=== PATIENT | male | born 1965 | race American Indian/Alaskan Native ===

== ENCOUNTER 2021-06-29 09:46 | Inpatient (IN) | payer MEDICAID ==
--- NOTE | 2021-06-29 10:52 | Emergency Department Report ---
HPI - General Chief Complaint: Syncope Time Seen by Provider: 06/29/21 10:31 - [facility] HPI: Room 20 The patient is a 55-year-old male present with chief complaint of syncope. The patient states he awakened this morning feeling great except for a mild headache at the calvarium. Patient states he stopped at a store to buy some Advil and abdelrahman nirmal. Patient states he then drove to work and after parking his car and walking towards his job he says he began to sweat and feel short of breath before losing consciousness. Patient states his next memory is awakening on the ground with his coworker over him. Patient denied ever having chest pain or palpitations. Patient denies history of cough. Patient denies any previous episodes of the same. Patient states he has not received a Covid vaccination. When asked how he is feeling currently the patient replies he feels good. ED Past Medical Hx - Past Medical History Previous Medical History?: No - Surgical History Past Surgical History?: No - Family History Family history: no significant - Social History Smoking Status: Never Smoker Substance Use Type: None (Denies illicit drug use) ED Review of Systems ROS: Stated complaint: SYNCOPAL EPISODE Other details as noted in HPI Constitutional: denies: fever Eyes: denies: eye pain ENT: denies: throat pain Respiratory: shortness of breath. denies: cough Cardiovascular: denies: chest pain, palpitations Endocrine: no symptoms reported Gastrointestinal: nausea Genitourinary: denies: dysuria Musculoskeletal: denies: back pain Neurological: headache Physical Exam - Physical Exam Vital Signs: Vital Signs 06/29/21 06/29/21 06/29/21 10:24 10:26 10:36 Temperature Pulse Rate 64 Respiratory 14 Rate Blood Pressure 105/57 O2 Sat by Pulse 98 97 99 Oximetry 06/29/21 10:43 Temperature 97.4 F L Pulse Rate Respiratory Rate Blood Pressure O2 Sat by Pulse Oximetry Physical Exam: GENERAL: The patient is well-developed well-nourished male lying on stretcher not appearing to be in acute distress. [] HEENT: Normocephalic. Atraumatic. Extraocular motions are intact. Patient has moist mucous membranes. NECK: Supple. No meningitic signs are noted. There is no adenopathy noted. CHEST/LUNGS: Clear to auscultation. There is no respiratory distress noted. HEART/CARDIOVASCULAR: Regular. There is no tachycardia. There is no gallop rub or murmur. ABDOMEN: Abdomen is soft, nontender. Patient has normal bowel sounds. There is no abdominal distention. SKIN: There is no rash. There is no edema. There is no diaphoresis. NEURO: The patient is awake, alert, and oriented. The patient is cooperative. The patient has no focal neurologic deficits. The patient has normal speech. Cranial nerves II through XII grossly intact. GCS 15 MUSCULOSKELETAL:There is no evidence of acute injury. RECTAL: Guaiac positive maroon-colored stool ED Course Vital Signs 06/29/21 06/29/21 06/29/21 10:24 10:26 10:36 Temperature Pulse Rate 64 Respiratory 14 Rate Blood Pressure 105/57 O2 Sat by Pulse 98 97 99 Oximetry 06/29/21 10:43 Temperature 97.4 F L Pulse Rate Respiratory Rate Blood Pressure O2 Sat by Pulse Oximetry ED Medical Decision Making - Lab Data Result diagrams: 06/29/21 11:53 06/29/21 11:53 Laboratory Tests 06/29/21 06/29/21 06/29/21 11:53 11:53 11:53 WBC 10.5 RBC 3.89 Hgb 11.5 L Hct 34.5 L MCV 89 MCH 30 MCHC 33 RDW 13.5 Plt Count 173 Lymph % (Auto) 8.7 L Cabell % (Auto) 5.1 Eos % (Auto) 0.8 Baso % (Auto) 0.3 Lymph # (Auto) 0.9 L Cabell # (Auto) 0.5 Eos # (Auto) 0.1 Baso # (Auto) 0.0 Seg Neutrophils % 85.1 H Seg Neutrophils # 9.0 H PT 16.1 H INR 1.24 H APTT 23.8 L D-Dimer 790.90 H Sodium 141 Potassium 4.2 Chloride 107.4 H Carbon Dioxide 27 Anion Gap 11 BUN 33 H Creatinine 0.9 Estimated GFR > 60 BUN/Creatinine Ratio 37 Glucose 82 Calcium 8.3 L Magnesium 1.90 Total Bilirubin 0.30 AST 14 ALT 12 Alkaline Phosphatase 71 Total Creatine Kinase 176 H CK-MB (CK-2) 5.0 H CK-MB (CK-2) Rel Index 2.8 Troponin T < 0.010 Total Protein 5.9 L Albumin 3.4 L Albumin/Globulin Ratio 1.4 TSH Free T4 Urine Color Urine Turbidity Urine pH Ur Specific Liberty Urine Protein Urine Glucose (UA) Urine Ketones Urine Blood Urine Nitrite Urine Bilirubin Urine Urobilinogen Ur Leukocyte Esterase Urine WBC (Auto) Urine RBC (Auto) Urine Mucus Urine Opiates Screen Urine Methadone Screen Ur Barbiturates Screen Ur Phencyclidine Scrn Ur Amphetamines Screen U Benzodiazepines Scrn Urine Cocaine Screen U Marijuana (THC) Screen Drugs of Abuse Note Plasma/Serum Alcohol Blood Type Antibody Screen 06/29/21 06/29/21 06/29/21 11:53 11:53 11:53 WBC RBC Hgb Hct MCV MCH MCHC RDW Plt Count Lymph % (Auto) Cabell % (Auto) Eos % (Auto) Baso % (Auto) Lymph # (Auto) Cabell # (Auto) Eos # (Auto) Baso # (Auto) Seg Neutrophils % Seg Neutrophils # PT INR APTT D-Dimer Sodium Potassium Chloride Carbon Dioxide Anion Gap BUN Creatinine Estimated GFR BUN/Creatinine Ratio Glucose Calcium Magnesium Total Bilirubin AST ALT Alkaline Phosphatase Total Creatine Kinase CK-MB (CK-2) CK-MB (CK-2) Rel Index Troponin T Total Protein Albumin Albumin/Globulin Ratio TSH 1.400 Free T4 0.77 Urine Color Urine Turbidity Urine pH Ur Specific Liberty Urine Protein Urine Glucose (UA) Urine Ketones Urine Blood Urine Nitrite Urine Bilirubin Urine Urobilinogen Ur Leukocyte Esterase Urine WBC (Auto) Urine RBC (Auto) Urine Mucus Urine Opiates Screen Urine Methadone Screen Ur Barbiturates Screen Ur Phencyclidine Scrn Ur Amphetamines Screen U Benzodiazepines Scrn Urine Cocaine Screen U Marijuana (THC) Screen Drugs of Abuse Note Plasma/Serum Alcohol < 0.01 Blood Type B POSITIVE Antibody Screen Negative 06/29/21 06/29/21 12:03 12:03 WBC RBC Hgb Hct MCV MCH MCHC RDW Plt Count Lymph % (Auto) Cabell % (Auto) Eos % (Auto) Baso % (Auto) Lymph # (Auto) Cabell # (Auto) Eos # (Auto) Baso # (Auto) Seg Neutrophils % Seg Neutrophils # PT INR APTT D-Dimer Sodium Potassium Chloride Carbon Dioxide Anion Gap BUN Creatinine Estimated GFR BUN/Creatinine Ratio Glucose Calcium Magnesium Total Bilirubin AST ALT Alkaline Phosphatase Total Creatine Kinase CK-MB (CK-2) CK-MB (CK-2) Rel Index Troponin T Total Protein Albumin Albumin/Globulin Ratio TSH Free T4 Urine Color Yellow Urine Turbidity Clear Urine pH 5.0 Ur Specific Liberty 1.018 Urine Protein <15 mg/dl Urine Glucose (UA) 50 Urine Ketones Neg Urine Blood Neg Urine Nitrite Neg Urine Bilirubin Neg Urine Urobilinogen < 2.0 Ur Leukocyte Esterase Neg Urine WBC (Auto) 1.0 Urine RBC (Auto) < 1.0 Urine Mucus Few Urine Opiates Screen Negative Urine Methadone Screen Negative Ur Barbiturates Screen Negative Ur Phencyclidine Scrn Negative Ur Amphetamines Screen Negative U Benzodiazepines Scrn Negative Urine Cocaine Screen Negative U Marijuana (THC) Screen Negative Drugs of Abuse Note Disclamer Plasma/Serum Alcohol Blood Type Antibody Screen - EKG Data -: EKG Interpreted by Me EKG shows normal: sinus rhythm Rate: normal - EKG Data When compared to previous EKG there are: previous EKG unavailable Interpretation: other (No ischemic changes seen) - Radiology Data Radiology results: report reviewed (CT angio abdomen pelvis), image reviewed (CT angio abdomen pelvis) interpreted by me: Chest x-ray-no definite focal infiltrates, no pneumothorax. Left humerus x-ray-no acute fracture, no dislocation [facility] [address] [place] [address] Cat Scan Report Signed Patient: MARK ISSA MR#: [id number] 3 : 1965 Acct:[id number] Age/Sex: 55 / M ADM Date: 06/29/21 Loc: ED Attending Dr: Ordering Physician: CHANG RUDD MD Date of Service: 06/29/21 Procedure(s): CT angio abdomen pelvis Accession Number(s): [id number] cc: CHANG RUDD MD CT abdo men/pelvis with contrast INDICATION / CLINICAL INFORMATION: Syncope, COMPLAINT OF CHEST PAIN AND DIZZINES omni 350 100 ML. TECHNIQUE: Axial CT imaging of abdomen and pelvis was obtained with IV contrast. Coronal and sagittal reformatted imaging obtained and reviewed. All CT scans at this location are performed using CT dose reduction for ALARA by means of automated exposure control. Please note this exam is listed as a CT angiogram abdomen and pelvis, but exam was performed as CT abdomen/pelvis with contrast. CTA abdomen was not performed COMPARISON: None available. FINDINGS: CT abdomen with contrast demonstrates normal appearance of the liver, spleen, pancreas, kidneys, and adrenal glands. Gallbladder is present and without obvious abnormality. No biliary dilatation noted. The abdominal aorta is unremarkable. No evidence of aortic dissection or aneurysm. No significant plaque is identified in the major arteries of the abdomen. CT pelvis with contrast does not demonstrate any mass, free fluid, or focal inflammatory change. The appendix is visualized in the right lower quadrant and appears unremarkable. Prostate gland is mildly enlarged. GI tract is grossly unremarkable. Visualized osseous structures demonstrate mild degenerative disc disease at L4-L5 with mild anterolisthesis at this same level. IMPRESSION: 1. No acute finding within the abdomen or pelvis. Signer Name: Shauna Vanegas MD Signed: 06/29/2021 2:20 PM Workstation Name: [id number] Transcribed By: JR Dictated By: Shauna Vanegas MD Electronically Authenticated By: Shauna Vanegas MD Signed Date/Time: 142 DD/ 15 TD/TT: Print Cancel [facility] [address] [place] [address] Cat Scan Report Signed Patient: MARK ISSA MR#: [id number] 3 : 1965 Acct:[id number] Age/Sex: 55 / M ADM Date: 06/29/21 Loc: ED Attending Dr: Ordering Physician: CHANG RUDD MD Date of Service: 06/29/21 Procedure(s): CT angio chest Accession Number(s): [id number] cc: CHANG RUDD MD CTA CHEST WITH IV CONTRAST INDICATION / CLINICAL INFORMATION: Syncope Omni 300 100 ml. TECHNIQUE: Axial CT images were obtained through the chest after injection of 100 cc IV contrast. 3 plane MIP and/or 3D reconstructions were produced. All CT scans at this location are performed using CT dose reduction for ALARA by means of automated exposure control. COMPARISON: 06/29/2021 FINDINGS: PULMONARY ARTERIES: No pulmonary emboli. THORACIC AORTA: There is an apparent right subclavian artery, arising from the aortic arch and extending posterior to the esophagus and trachea. This is an incidental finding. The thoracic aorta is otherwise unre markable. No evidence of dissection or aneurysm. HEART: No significant abnormality. CORONARY ARTERIES: Coronary artery calcification is present in the LAD. PLEURA: No pleural effusion. No pneumothorax. LYMPH NODES: No significant adenopathy. LUNGS: There are diffuse groundglass opacities throughout the right lower lobe and right middle lobe. The left lung is clear. The right upper lobe is spared. ADDITIONAL FINDINGS: None. UPPER ABDOMEN: No acute findings. SKELETAL STRUCTURES: No significant osseous abnormality. IMPRESSION: 1. No CT evidence for pulmonary embolism. 2. Groundglass opacities are present within the right middle lobe and right lower lobe. The appearance is most suggestive of pne umonia. It is unclear if this is bacterial or viral in etiology and clinical correlation is recommended. 3. Aberrant right subclavian artery, as described above. This is an incidental finding. Signer Name: Shauna Vanegas MD Signed: 06/29/2021 2:44 PM Workstation Name: [id number] Transcribed By: Dictated By: Shauna Vanegas MD Electronically Authenticated By: Shauna Vanegas MD Signed Date/Time: 06/29/21 1444 DD/ 1439 TD/TT: Print Cancel [address] [address] XRay Report Signed Patient: MARK ISSA MR#: [id number] 3 : 1965 Acct:[id number] Age/Sex: 55 / M ADM Date: 06/29/21 Loc: ED Attending Dr: Ordering Physician: CHANG RUDD MD Date of Service: 06/29/21 Procedure(s): XR chest 1V ap Accession Number(s): [id number] cc: CHANG RUDD MD Fluoro Time In Minutes: CHEST 1 VIEW INDICATION / CLINICAL INFORMATION: Shortness of breath preceding syncope. COMPARISON: None available. FINDINGS: SUPPORT DEVICES: None. HEART / MEDIASTINUM: No significant abnormality. LUNGS / PLEURA: No significant pulmonary or pleural abnormality. No pneumothorax. ADDITIONAL FINDINGS: No signi ficant additional findings. IMPRESSION: 1. No acute findings. Signer Name: Shauna Vanegas MD Signed: 06/29/2021 11:33 AM Workstation Name: [id number] Transcribed By: Dictated By: Shauna Vanegas MD Electronically Authenticated By: Shauna Vanegas MD Signed Date/Time: 06/29/21 1133 DD/ 1132 TD/TT: Print Cancel [address] [place] [address] XRay Report Signed Patient: MARK ISSA MR#: [id number] 3 : 1965 Acct:[id number] Age/Sex: 55 / M ADM Date: 06/29/21 Loc: ED Attending Dr: Piero [place] Physician: CHANG RUDD MD Date of Service: 06/29/21 Procedure(s): XR humerus 2+V LT Accession Number(s): [id number] cc: CHANG RUDD MD Fluoro Time In Minutes: LEFT HUMERUS, 4 VIEWS INDICATION / CLINICAL INFORMATION: Pain after fall. COMPARISON: None available. FINDINGS: The left humerus is intact. No fracture or malalignment noted. No appreciable soft tissue abnormality. IMPRESSION: No fracture noted. Signer Name: Shauna Vanegas MD Signed: 06/29/2021 11:34 AM Workstation Name: [id number] Transcribed By: JR Dictated By: Shauna Vanegas MD Electronically Authenticated By: Shauna Vanegas MD Signed Date/Time: 06/29/21 1134 DD/ 1133 TD/TT: - Differential Diagnosis Dysrhythmia, PE, ACS, symptomatic anemia, dehydration Critical care attestation.: If time is entered above; I have spent that time in minutes in the direct care of this critically ill patient, excluding procedure time. ED Disposition Clinical Impression: Syncope, Pneumonia, GI bleed Disposition: OP ADMIT IP TO THIS HOSP Is pt being admited?: Yes Does the pt Need Aspirin: No Condition: Fair Instructions: Syncope (ED), Bacterial Pneumonia (ED) Time of Disposition: 14:57 (Hospitalist paged (Dr. Enriquez))
[2021-06-29] MEDS ORDERED: SODIUM CHLORIDE 0.9% 1000 ML 1,000 ML IV ONE ×2 (11:00→12:00)
--- NOTE | 2021-06-29 11:37 | XRay Report ---
CHEST 1 VIEW INDICATION / CLINICAL INFORMATION: Shortness of breath preceding syncope. COMPARISON: None available. FINDINGS: SUPPORT DEVICES: None. HEART / MEDIASTINUM: No significant abnormality. LUNGS / PLEURA: No significant pulmonary or pleural abnormality. No pneumothorax. ADDITIONAL FINDINGS: No significant additional findings. IMPRESSION: 1. No acute findings. Signer Name: Shauna Vanegas MD Signed: 06/29/2021 11:33 AM Workstation Name: [id number]
--- NOTE | 2021-06-29 11:38 | XRay Report ---
LEFT HUMERUS, 4 VIEWS INDICATION / CLINICAL INFORMATION: Pain after fall. COMPARISON: None available. FINDINGS: The left humerus is intact. No fracture or malalignment noted. No appreciable soft tissue abnormality . IMPRESSION: No fracture noted. Signer Name: Shauna Vanegas MD Signed: 06/29/2021 11:34 AM Workstation Name: [id number]
--- NOTE | 2021-06-29 11:43 | Cat Scan Report ---
CT HEAD WITHOUT CONTRAST INDICATION / CLINICAL INFORMATION: Syncope. TECHNIQUE: All CT scans at this location are performed using CT dose reduction for ALARA by means of automated e xposure control. COMPARISON: None available. FINDINGS: HEMORRHAGE: No evidence of intracranial hemorrhage or extra-axial fluid collection. EXTRA-AXIAL SPACES: Cortical sulci, sylvian fissures and basilar cisterns have an unremarkable appear ance. VENTRICULAR SYSTEM: The third and lateral ventricles are of normal size and configuration. CEREBRAL PARENCHYMA: Moderate periventricular white matter lucency is observed posterior hemispheres. This may reflect presence of advanced microvascular ischemic change, greater than expected for patie nt's age of 55 years. Are there risk factors such as attention, diabetes, renal failure or cigarettes smoking No additional areas of abnormal brain parenchymal attenuation are MIDLINE SHIFT OR HERNIATION: There is no mass effect. CEREBELLUM / BRAINSTEM: Brainstem and cerebellum have an unremarkable appearance. MIDLINE STRUCTURES:No abnormalities of the pituitary gland or pineal region are identified. INTRACRANIAL VESSELS:Calcified atherosclerotic plaque is seen along the course of the cavernous segme nts of both internal carotid arteries. Similar findings are seen at the distal vertebral arteries. Th is reflects a degree of intercranial atherosclerosis which is greater than expected for age 55 years. ORBITS: visualized portions of the orbits have an unremarkable appearance. SOFT TISSUES of HEAD: No significant abnormality. CALVARIUM: Evaluation of bone windows reveals no abnormalities. PARANASAL SINUSES / MASTOID AIR CELLS: Visualized portions of the paranasal sinuses are free from inf lammatory mucosal disease. Mastoid air cells are normally pneumatized. IMPRESSION: 1. Moderate microvascular ischemic change in intercranial atherosclerotic calcified plaque in excess of those findings expected for the patient's age of 55 years. 2. No acute intracranial abnormalities are identified. Signer Name: Serafin Izquierdo MD Signed: 06/29/2021 11:39 AM Workstation Name: [id number]
[2021-06-29] MEDS ORDERED: PANTOPRAZOLE 40 MG INJ IV ONE (12:03)
[2021-06-29 12:12] LABS: Basophils % (Auto) 0.3 % (0.0-1.8); Eosinophils # (Auto) 0.1 K/mm3 (0.0-0.4); Eosinophils % (Auto) 0.8 % (0.0-4.3); Hematocrit 34.5 % (35.5-45.6); Hemoglobin 11.5 gm/dl (11.8-15.2); Lymphocytes # (Auto) 0.9 K/mm3 (1.2-5.4); Lymphocytes % (Auto) 8.7 % (13.4-35.0); Mean Corpuscular HGB Conc 33 % (32-34); Mean Corpuscular Volume 89 fl (84-94); Monocytes # (Auto) 0.5 K/mm3 (0.0-0.8); Monocytes % (Auto) 5.1 % (0.0-7.3); Platelet Count 173 K/mm3 (140-440); Red Blood Count 3.89 M/mm3 (3.65-5.03); Red Cell Distribution Width 13.5 % (13.2-15.2)
[2021-06-29 12:20] LABS: INR 1.24 (0.87-1.13)
[2021-06-29 12:21] LABS: Partial Thromboplastin Time 23.8 Sec. (24.2-36.6)
[2021-06-29 12:21] LABS: Bilirubin,Urine NEG (Negative); Blood,Urine NEG (Negative); Color,Urine Yellow (Yellow); Mucus,Urine FEW /HPF; Protein,Urine <15 mg/dL mg/dL (Negative); RBC,Urine < 1.0 /HPF (0.0-6.0); Urobilinogen,Urine < 2.0 mg/dL (<2.0)
[2021-06-29 12:26] LABS: Amphetamine Screen,Urine Negative; Benzodiazepines Screen,Urine Negative; Cannabinoid Screen,Urine Negative; Cocaine Screen,Urine Negative; Methadone Screen,Urine Negative; Opiate Screen,Urine Negative
[2021-06-29 12:36] LABS: Alanine Aminotransferase 12 units/L (7-56); Albumin 3.4 g/dL (3.9-5); BUN/Creatinine Ratio 37; Blood Urea Nitrogen 33 mg/dL (9-20); Calcium 8.3 mg/dL (8.4-10.2); Hemolysis Index 7
[2021-06-29 12:46] LABS: Free T4 (Free Thyroxine) 0.77 ng/dL (0.76-1.46)
--- NOTE | 2021-06-29 14:24 | Cat Scan Report ---
CT abdomen/pelvis with contrast INDICATION / CLINICAL INFORMATION: Syncope, COMPLAINT OF CHEST PAIN AND DIZZINES omni 350 100 ML. TECHNIQUE: Axial CT imaging of abdomen and pelvis was obtained with IV contrast. Coronal and sagittal reformatte d imaging obtained and reviewed. All CT scans at this location are performed using CT dose reduction for ALARA by means of automated exposure control. Please note this exam is listed as a CT angiogram abdomen and pelvis, but exam was performed as CT ab domen/pelvis with contrast. CTA abdomen was not performed COMPARISON: None available. FINDINGS: CT abdomen with contrast demonstrates normal appearance of the liver, spleen, pancreas, kidneys, and adrenal glands. Gallbladder is present and without obvious abnormality. No biliary dilatation noted. The abdominal aorta is unremarkable. No evidence of aortic dissection or aneurysm. No significant francesca que is identified in the major arteries of the abdomen. CT pelvis with contrast does not demonstrate any mass, free fluid, or focal inflammatory change. The appendix is visualized in the right lower quadrant and appears unremarkable. Prostate gland is mildly enlarged. GI tract is grossly unremarkable. Visualized osseous structures demonstrate mild degenerative disc disease at L4-L5 with mild anterolis thesis at this same level. IMPRESSION: 1. No acute finding within the abdomen or pelvis. Signer Name: Shauna Vanegas MD Signed: 06/29/2021 2:20 PM Workstation Name: [email or web address]
--- NOTE | 2021-06-29 14:49 | Cat Scan Report ---
CTA CHEST WITH IV CONTRAST INDICATION / CLINICAL INFORMATION: Syncope Omni 300 100 ml. TECHNIQUE: Axial CT images were obtained through the chest after injection of 100 cc IV contrast. 3 plane MIP an d/or 3D reconstructions were produced. All CT scans at this location are performed using CT dose redu ction for [facility] by means of automated exposure control. COMPARISON: 06/29/2021 FINDINGS: PULMONARY ARTERIES: No pulmonary emboli. THORACIC AORTA: There is an apparent right subclavian artery, arising from the aortic arch and extend ing posterior to the esophagus and trachea. This is an incidental finding. The thoracic aorta is othe rwise unremarkable. No evidence of dissection or aneurysm. HEART: No significant abnormality. CORONARY ARTERIES: Coronary artery calcification is present in the LAD. PLEURA: No pleural effusion. No pneumothorax. LYMPH NODES: No significant adenopathy. LUNGS: There are diffuse groundglass opacities throughout the right lower lobe and right middle lobe. The left lung is clear. The right upper lobe is spared. ADDITIONAL FINDINGS: None. UPPER ABDOMEN: No acute findings. SKELETAL STRUCTURES: No significant osseous abnormality. IMPRESSION: 1. No CT evidence for pulmonary embolism. 2. Groundglass opacities are present within the right middle lobe and right lower lobe. The appearanc e is most suggestive of pneumonia. It is unclear if this is bacterial or viral in etiology and clinic al correlation is recommended. 3. Aberrant right subclavian artery, as described above. This is an incidental finding. Signer Name: Shauna Vanegas MD Signed: 06/29/2021 2:44 PM Workstation Name: [id number]
[2021-06-29] MEDS ORDERED: AZITHROMYCIN/NS 500 MG/250 ML 500 MG/250 ML BAG IV ONE (14:54)
[2021-06-29] MEDS ORDERED: cefTRIAXone/NS 1 GM/50 ML 1 GM/50 ML BAG IV ONE (14:54)
[2021-06-29] MEDS ORDERED: MORPHINE 2 MG/1 ML INJ IV PRN (22:37)
[2021-06-29] MEDS ORDERED: HYDROmorphone 1 MG/1 ML INJ IV PRN (22:37)
[2021-06-29] MEDS ORDERED: ACETAMINOPHEN 325 MG TAB PO PRN (22:37)
[2021-06-29] MEDS ORDERED: ONDANSETRON 4 MG/2 ML INJ IV PRN (22:37)
--- NOTE | 2021-06-29 22:37 | History and Physical Report ---
History of Present Illness Date of examination: 06/29/21 Date of admission: 06/29/21 21:33 Chief complaint: Passed out this morning History of present illness: 55-year-old male with no significant past medical history apparently began with sweat and felt short of breath and passed out. Patient states that he was on the ground and his coworker woke him up. Patient was exposed to some heat. Because of mild headache prior to the syncopal episode patient brought to [facility] and go to work. In the emergency room patient feels better and normal. Vital signs are stable. Patient is not vaccinated against Covid. No fever or chills. First episode of passing out while going to work. No chest pain or shortness of breath or altered sensorium. Patient also complained of dark stools for last 24 hours. - Past Medical History Previous Medical History?: No - Surgical History Past Surgical History?: No - Family History Family history: no significant - Social History Smoking Status: Never Smoker Substance Use Type: None (Denies illicit drug use) Review of Systems ROS: GI dark stools for 24 hours [employer] syncope Constitutional no weight loss or weight gain no fever or chills HEENT no sore throat no post nasal drip no diplopia Neck no neck stiffness no lymph gland enlargement Chest and lungs no shortness of breath cough or wheezing CVS no chest pain no diaphoresis no palpitations Genitourinary system no dysuria no flank pain Musculoskeletal system no muscle pains no joint pains Skin no rash no itching Psychiatric no depression no homicidal or suicidal tendencies Hematologic no lymphedema or bruising Endocrine no polydipsia no polyuria no cold intolerance no heat intolerance Medications and Allergies Allergies Allergy/AdvReac Type Severity Reaction Status Date / Time No Known Allergies Allergy Unverified 06/29/21 11:06 Exam - Constitutional Vitals: Temp Pulse Resp BP Pulse Ox 97.4 F L 82 14 115/70 96 06/29/21 10:43 06/29/21 21:30 06/29/21 21:30 06/29/21 21:30 06/29/21 21:30 General appearance: Present: no acute distress, well-nourished - EENT Eyes: Present: PERRL ENT: hearing intact, clear oral mucosa - Neck Neck: Present: supple, normal ROM - Respiratory Respiratory effort: normal Respiratory: bilateral: CTA - Cardiovascular Heart Sounds: Present: S1 & S2. Absent: rub, click - Extremities Extremities: pulses symmetrical, No edema Peripheral Pulses: within normal limits - Abdominal General gastrointestinal: Present: soft, non-tender, non-distended, normal bowel sounds Male genitourinary: Present: normal - Integumentary Integumentary: Present: clear, warm, dry - Musculoskeletal Musculoskeletal: gait normal, strength equal bilaterally - Psychiatric Psychiatric: appropriate mood/affect, intact judgment & insight - Neurologic Neurologic: CNII-XII intact, moves all extremities - Allied Health Allied health notes reviewed: nursing, case management HEART Score - HEART Score History: Slightly suspicious EKG: Normal Age: 45-65 Risk factors: No known risk factors Troponin: Troponin T < 0.010 ng/mL (0.00-0.029) 06/29/21 11:53 Troponin: < normal limit HEART Score: 1 - Critical Actions Critical Actions: 0-3 pts:0.9-1.7%risk of adverse cardiac event.Candidate for discharge Results - Labs CBC & Chem 7: 06/29/21 23:58 06/29/21 23:58 Labs: Laboratory Last Values WBC 10.5 K/mm3 (4.5-11.0) 06/29/21 11:53 RBC 3.89 M/mm3 (3.65-5.03) 06/29/21 11:53 Hgb 11.5 gm/dl (11.8-15.2) L 06/29/21 11:53 Hct 34.5 % (35.5-45.6) L 06/29/21 11:53 MCV 89 fl (84-94) 06/29/21 11:53 MCH 30 pg (28-32) 06/29/21 11:53 MCHC 33 % (32-34) 06/29/21 11:53 RDW 13.5 % (13.2-15.2) 06/29/21 11:53 Plt Count 173 K/mm3 (140-440) 06/29/21 11:53 Lymph % (Auto) 8.7 % (13.4-35.0) L 06/29/21 11:53 [place] % (Auto) 5.1 % (0.0-7.3) 06/29/21 11:53 Eos % (Auto) 0.8 % (0.0-4.3) 06/29/21 11:53 Baso % (Auto) 0.3 % (0.0-1.8) 06/29/21 11:53 Lymph # (Auto) 0.9 K/mm3 (1.2-5.4) L 06/29/21 11:53 [place] # (Auto) 0.5 K/mm3 (0.0-0.8) 06/29/21 11:53 Eos # (Auto) 0.1 K/mm3 (0.0-0.4) 06/29/21 11:53 Baso # (Auto) 0.0 K/mm3 (0.0-0.1) 06/29/21 11:53 Seg Neutrophils % 85.1 % (40.0-70.0) H 06/29/21 11:53 Seg Neutrophils # 9.0 K/mm3 (1.8-7.7) H 06/29/21 11:53 PT 16.1 Sec. (12.2-14.9) H 06/29/21 11:53 INR 1.24 (0.87-1.13) H 06/29/21 11:53 APTT 23.8 Sec. (24.2-36.6) L 06/29/21 11:53 D-Dimer 790.90 ng/mlDDU (0-234) H 06/29/21 11:53 Sodium 141 mmol/L (137-145) 06/29/21 11:53 Potassium 4.2 mmol/L (3.6-5.0) 06/29/21 11:53 Chloride 107.4 mmol/L (98-107) H 06/29/21 11:53 Carbon Dioxide 27 mmol/L (22-30) 06/29/21 11:53 Anion Gap 11 mmol/L 06/29/21 11:53 BUN 33 mg/dL (9-20) H 06/29/21 11:53 Creatinine 0.9 mg/dL (0.8-1.3) 06/29/21 11:53 Estimated GFR > 60 ml/min 06/29/21 11:53 BUN/Creatinine Ratio 37 % 06/29/21 11:53 Glucose 82 mg/dL (75-100) 06/29/21 11:53 Calcium 8.3 mg/dL (8.4-10.2) L 06/29/21 11:53 Magnesium 1.90 mg/dL (1.7-2.3) 06/29/21 11:53 Total Bilirubin 0.30 mg/dL (0.1-1.2) 06/29/21 11:53 AST 14 units/L (5-40) 06/29/21 11:53 ALT 12 units/L (7-56) 06/29/21 11:53 Alkaline Phosphatase 71 units/L (35-129) 06/29/21 11:53 Total Creatine Kinase 176 units/L (55-170) H 06/29/21 11:53 CK-MB (CK-2) 5.0 ng/mL (0.0-4.0) H 06/29/21 11:53 CK-MB (CK-2) Rel Index 2.8 (0-4) 06/29/21 11:53 Troponin T < 0.010 ng/mL (0.00-0.029) 06/29/21 11:53 Total Protein 5.9 g/dL (6.3-8.2) L 06/29/21 11:53 Albumin 3.4 g/dL (3.9-5) L 06/29/21 11:53 Albumin/Globulin Ratio 1.4 % 06/29/21 11:53 TSH 1.400 mlU/mL (0.270-4.200) 06/29/21 11:53 Free T4 0.77 ng/dL (0.76-1.46) 06/29/21 11:53 Urine Color Yellow (Yellow) 06/29/21 12:03 Urine Turbidity Clear (Clear) 06/29/21 12:03 Urine pH 5.0 (5.0-7.0) 06/29/21 12:03 Ur Specific [place] 1.018 (1.003-1.030) 06/29/21 12:03 Urine Protein <15 mg/dl mg/dL (Negative) 06/29/21 12:03 Urine Glucose (UA) 50 mg/dL (Negative) 06/29/21 12:03 Urine Ketones Neg mg/dL (Negative) 06/29/21 12:03 Urine Blood Neg (Negative) 06/29/21 12:03 Urine Nitrite Neg (Negative) 06/29/21 12:03 Urine Bilirubin Neg (Negative) 06/29/21 12:03 Urine Urobilinogen < 2.0 mg/dL (<2.0) 06/29/21 12:03 Ur Leukocyte Esterase Neg (Negative) 06/29/21 12:03 Urine WBC (Auto) 1.0 /HPF (0.0-6.0) 06/29/21 12:03 Urine RBC (Auto) < 1.0 /HPF (0.0-6.0) 06/29/21 12:03 Urine Mucus Few /HPF 06/29/21 12:03 Urine Opiates Screen Negative 06/29/21 12:03 Urine Methadone Screen Negative 06/29/21 12:03 Ur Barbiturates Screen Negative 06/29/21 12:03 Ur Phencyclidine Scrn Negative 06/29/21 12:03 Ur Amphetamines Screen Negative 06/29/21 12:03 U Benzodiazepines Scrn Negative 06/29/21 12:03 Urine Cocaine Screen Negative 06/29/21 12:03 U Marijuana (THC) Screen Negative 06/29/21 12:03 Drugs of Abuse Note Disclamer 06/29/21 12:03 Plasma/Serum Alcohol < 0.01 % (0-0.07) 06/29/21 11:53 Blood Type B POSITIVE 06/29/21 11:53 Antibody Screen Negative 06/29/21 11:53 Short CBC 06/29/21 06/29/21 Range/Units 11:53 23:58 WBC 10.5 (4.5-11.0) K/mm3 Hgb 11.5 L 9.7 L (11.8-15.2) gm/dl Hct 34.5 L 29.0 L (35.5-45.6) % Plt Count 173 (140-440) K/mm3 BMP 06/29/21 06/29/21 11:53 23:58 Sodium 141 Potassium 4.2 Chloride 107.4 H Carbon Dioxide 27 BUN 33 H Creatinine 0.9 Glucose 82 112 H Calcium 8.3 L Cardiac Enzymes 06/29/21 Range/Units 11:53 Total Creatine Kinase 176 H (55-170) units/L CK-MB (CK-2) 5.0 H (0.0-4.0) ng/mL Troponin T < 0.010 (0.00-0.029) ng/mL Liver Function 06/29/21 Range/Units 11:53 Total Bilirubin 0.30 (0.1-1.2) mg/dL AST 14 (5-40) units/L ALT 12 (7-56) units/L Alkaline Phosphatase 71 (35-129) units/L Albumin 3.4 L (3.9-5) g/dL Urine 06/29/21 Range/Units 12:03 Urine Color Yellow (Yellow) Urine pH 5.0 (5.0-7.0) Ur Specific [place] 1.018 (1.003-1.030) Urine Protein <15 mg/dl (Negative) mg/dL Urine Glucose (UA) 50 (Negative) mg/dL Microbiology: Microbiology 06/29/21 15:24 Peripheral/Venous Blood Culture - Preliminary Culture in Progress 06/29/21 15:24 Peripheral/Venous Blood Culture - Preliminary Culture in Progress 06/29/21 11:48 Stool Stool Occult Blood (KIRSTIN) - Final - Imaging and Cardiology Chest x-ray: report reviewed CT scan - abdomen: report reviewed CT scan - chest: report reviewed CT Scan - head: report reviewed Imaging and Cardiology: CT abdomen and pelvis with contrast No acute findings within the abdomen or pelvis Chest x-ray No acute findings Head CT Moderate microvascular ischemic changes intracranial atherosclerotic calcified plaque in excess of those findings expected for the patient's age of 55 years. No acute intracranial abnormalities are identified. Chest CTA No CT evidence of pulmonary embolism Groundglass opacities are seen within the right middle lobe and right lower lobe the appearance is more suggestive of pneumonia it is unclear if this is bacterial or viral etiology and clinical correlation is recommended. Aberrant right subclavian artery as described above this is an incidental finding. Assessment and Plan Advance Directives: Yes (Full code) VTE prophylaxis?: Chemical Plan of care discussed with patient/family: Yes - Patient Problems (1) Right lower lobe pneumonia Current Visit: Yes Status: Acute Plan to address problem: Treat as community-acquired pneumonia Coronavirus PCR to be ruled out CT chest shows groundglass opacities Possible Covid (2) GI bleed Current Visit: Yes Status: Acute Plan to address problem: Patient complains of dark stools Occult blood positive Hemoglobin dropped from 11.5 to 9.7 g and hematocrit dropped from 34.5-29 Patient is kept n.p.o. GI consult IV Protonix drip (3) Person under investigation for COVID-19 Current Visit: Yes Status: Acute (4) Syncope Current Visit: Yes Status: Acute Plan to address problem: Syncope secondary to volume loss in the form of GI bleed Monitor hemoglobin and hematocrit Carotid duplex scan Echocardiogram for ejection fraction (5) Malnutrition Current Visit: Yes Status: Chronic Qualifiers: Protein-calorie malnutrition severity: mild Plan to address problem: Albumin of 3.4 Dietary supplements once patient is eating (6) Hypocalcemia Current Visit: Yes Status: Chronic Plan to address problem: Calcium supplements when stable (7) DVT prophylaxis Current Visit: Yes Status: Acute Plan to address problem: No heparin On Protonix IV drip
[2021-06-29] MEDS ORDERED: D5W/0.9% NACL 1,000 ML IV SCH (23:00)
[2021-06-29] MEDS ORDERED: PANTOPRAZOLE 80 MG in SODIUM CHLORIDE 0.9% 100 ML IV SCH (23:00)
[2021-06-29] MEDS ORDERED: dexAMETHasone 4 MG/ML VIAL IV SCH (23:00)
[2021-06-30 00:24] LABS: Hemoglobin 9.7 gm/dl (11.8-15.2)
[2021-06-30 02:24] LABS: C-Reactive Protein 0.5 mg/dL (0.00-1.30)
[2021-06-30 06:22] LABS: Hemoglobin 10.6 gm/dl (11.8-15.2); Mean Corpuscular HGB Conc 34 % (32-34); Mean Corpuscular Volume 87 fl (84-94); Platelet Count 151 K/mm3 (140-440); Red Blood Count 3.55 M/mm3 (3.65-5.03); Red Cell Distribution Width 13.1 % (13.2-15.2)
[2021-06-30 06:43] LABS: Alanine Aminotransferase 12 units/L (7-56); Albumin 3.7 g/dL (3.9-5); Blood Urea Nitrogen 19 mg/dL (9-20); Calcium 9.2 mg/dL (8.4-10.2); Hemolysis Index 4
[2021-06-30 07:00] LABS: BUN/Creatinine Ratio 27
[2021-06-30 09:03] LABS: Total Cells Counted 100
[2021-06-30 09:04] LABS: Platelet Estimate Consistent w Auto; RBC Morphology Normal
[2021-06-30] MEDS ORDERED: AZITHROMYCIN/NS 500 MG/250 ML 500 MG/250 ML BAG IV SCH (10:00)
[2021-06-30] MEDS ORDERED: cefTRIAXone/NS 2 GM/100 ML 2 GM/100 ML BAG IV SCH (10:00)
--- NOTE | 2021-06-30 10:26 | Gastroenterology Consultation ---
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 He reports feeling completely normal now He reports yesterday he did have 1 black bowel movement however he reports no other bowel movements since then and no history of GI bleeding that he is aware of He reports he does not think he has been losing weight but his did recently mentioned that he looks thinner to her He reports normal ability to eat no abdominal pain no change in bowel habits no change in stool caliber no nausea vomiting normal appetite no early satiety He reports he does not follow with physicians and does not have any known medica l history has never had a colonoscopy or upper endoscopy Obtained/updated/reviewed patient's current medications Past History Past Surgical History: No surgical history Social history: no significant social history Family history: no significant family history Medications and Allergies Allergies Allergy/AdvReac Type Severity Reaction Status Date / Time No Known Allergies Allergy Unverified 06/29/21 11:06 Active Meds: Active Medications Acetaminophen (Acetaminophen 325 Mg Tab) 650 mg PO Q4H PRN PRN Reason: Pain MILD(1-3)/Fever >100.5/COSBY Dexamethasone (Dexamethasone 4 Mg/Ml Vial) 8 mg IV Q24H JUSTYN Last Admin: 06/29/21 23:10 Dose: 8 mg Documented by: Hydromorphone HCl (Hydromorphone 1 Mg/1 Ml Inj) 0.5 mg IV Q3H PRN PRN Reason: Pain , Severe (7-10) Dextrose/Sodium Chloride (D5ns) 1,000 mls @ 75 mls/hr IV DIRECT JUSTYN Last Admin: 06/29/21 23:44 Dose: 75 mls/hr Documented by: Pantoprazole Sodium 80 mg/ (Sodium Chloride) 100 mls @ 10 mls/hr IV DIRECT JUSTYN Last Admin: 06/29/21 23:43 Dose: 8 mg/hr, 10 mls/hr Documented by: Azithromycin (Zithromax/Ns) 500 mg in 250 mls @ 250 mls/hr IV Q24H JUSTYN Ceftriaxone Sodium (Rocephin/Ns 2 Gm/100 Ml) 2 gm in 100 mls @ 200 mls/hr IV Q24HR JUSTYN; Protocol Morphine Sulfate (Morphine 2 Mg/1 Ml Inj) 2 mg IV Q4H PRN PRN Reason: Pain, Moderate (4-6) Ondansetron HCl (Ondansetron 4 Mg/2 Ml Inj) 4 mg IV Q8H PRN PRN Reason: Nausea And Vomiting Sodium Chloride (Sodium Chloride 0.9% 10 Ml Flush Syringe) 10 ml IV BID JUSTYN Sodium Chloride (Sodium Chloride 0.9% 10 Ml Flush Syringe) 10 ml IV PRN PRN PRN Reason: LINE FLUSH Review of Systems - Review of Systems All systems: negative (10 Systems reviewed and negative except as mentioned above in the history of present illness) Exam - Constitutional Vital Signs: Temp Pulse Resp BP Pulse Ox 97.4 F L 64 11 L 101/71 99 06/29/21 10:43 06/30/21 08:16 06/30/21 08:16 06/30/21 08:16 06/30/21 08:24 General appearance: no acute distress, other (Mild bitemporal wasting) - EENT ENT: hearing intact - Neck Neck: supple - Respiratory Respiratory effort: normal - Cardiovascular Rhythm: regular - Gastrointestinal General gastrointestinal: Present: soft, non-tender, normal bowel sounds - Integumentary Integumentary: Present: dry - Musculoskeletal Musculoskeletal: normal - Neurologic Neurological: alert and oriented x3 - Psychiatric Psychiatric: appropriate mood/affect - Labs CBC & Chem 7: 06/30/21 05:28 06/30/21 05:28 Lab Results: Laboratory Results - last 24 hr 06/29/21 06/29/21 06/29/21 11:53 11:53 11:53 WBC 10.5 RBC 3.89 Hgb 11.5 L Hct 34.5 L MCV 89 MCH 30 MCHC 33 RDW 13.5 Plt Count 173 Lymph % (Auto) 8.7 L [place] % (Auto) 5.1 Eos % (Auto) 0.8 Baso % (Auto) 0.3 Lymph # (Auto) 0.9 L [place] # (Auto) 0.5 Eos # (Auto) 0.1 Baso # (Auto) 0.0 Add Manual Diff Total Counted Seg Neutrophils % 85.1 H Seg Neuts % (Manual) Reactive Lymphs % (Man) Monocytes % (Manual) Basophils % (Manual) Nucleated RBC % Seg Neutrophils # 9.0 H Seg Neutrophils # Man Band Neutrophils # Lymphocytes # (Manual) Abs React Lymphs (Man) Monocytes # (Manual) Eosinophils # (Manual) Basophils # (Manual) Metamyelocytes # Myelocytes # Promyelocytes # Blast Cells # WBC Morphology Hypersegmented Neuts Hyposegmented Neuts Hypogranular Neuts Smudge Cells Toxic Granulation Toxic Vacuolation Dohle Bodies Pelger-Huet Anomaly Oleg Rods Platelet Estimate Clumped Platelets Plt Clumps, EDTA Large Platelets Giant Platelets Platelet Satelliting Plt Morphology Comment RBC Morphology Dimorphic RBCs Polychromasia Hypochromasia Poikilocytosis Anisocytosis Microcytosis Macrocytosis Spherocytes Pappenheimer Bodies Sickle Cells Target Cells Tear Drop Cells Ovalocytes Helmet Cells Gilbert-Amagon Bodies [place] Rings [place] Cells Bite Cells Crenated Cell Elliptocytes Acanthocytes (Spur) Rouleaux Hemoglobin C Crystals Schistocytes Malaria parasites Luis Enrique Bodies Hem Pathologist Commnt PT 16.1 H INR 1.24 H APTT 23.8 L D-Dimer 790.90 H Sodium 141 Potassium 4.2 Chloride 107.4 H Carbon Dioxide 27 Anion Gap 11 BUN 33 H Creatinine 0.9 Estimated GFR > 60 BUN/Creatinine Ratio 37 Glucose 82 Hemoglobin A1c Calcium 8.3 L Magnesium 1.90 Ferritin Total Bilirubin 0.30 AST 14 ALT 12 Alkaline Phosphatase 71 Lactate Dehydrogenase Total Creatine Kinase 176 H CK-MB (CK-2) 5.0 H CK-MB (CK-2) Rel Index 2.8 Troponin T < 0.010 C-Reactive Protein Total Protein 5.9 L Albumin 3.4 L Albumin/Globulin Ratio 1.4 TSH Free T4 Urine Color Urine Turbidity Urine pH Ur Specific [place] Urine Protein Urine Glucose (UA) Urine Ketones Urine Blood Urine Nitrite Urine Bilirubin Urine Urobilinogen Ur Leukocyte Esterase Urine WBC (Auto) Urine RBC (Auto) Urine Mucus Urine Opiates Screen Urine Methadone Screen Ur Barbiturates Screen Ur Phencyclidine Scrn Ur Amphetamines Screen U Benzodiazepines Scrn Urine Cocaine Screen U Marijuana (THC) Screen Drugs of Abuse Note Plasma/Serum Alcohol Blood Type Antibody Screen 06/29/21 06/29/21 06/29/21 11:53 11:53 11:53 WBC RBC Hgb Hct MCV MCH MCHC RDW Plt Count Lymph % (Auto) [place] % (Auto) Eos % (Auto) Baso % (Auto) Lymph # (Auto) [place] # (Auto) Eos # (Auto) Baso # (Auto) Add Manual Diff Total Counted Seg Neutrophils % Seg Neuts % (Manual) Reactive Lymphs % (Man) Monocytes % (Manual) Basophils % (Manual) Nucleated RBC % Seg Neutrophils # Seg Neutrophils # [place] Band Neutrophils # Lymphocytes # (Manual) Abs React Lymphs (Man) Monocytes # (Manual) Eosinophils # (Manual) Basophils # (Manual) Metamyelocytes # Myelocytes # Promyelocytes # Blast Cells # WBC Morphology Hypersegmented Neuts Hyposegmented Neuts Hypogranular Neuts Smudge Cells Toxic Granulation Toxic Vacuolation Dohle Bodies Pelger-Huet Anomaly Oleg Rods Platelet Estimate Clumped Platelets Plt Clumps, EDTA Large Platelets Giant Platelets Platelet Satelliting Plt Morphology Comment RBC Morphology Dimorphic RBCs Polychromasia Hypochromasia Poikilocytosis Anisocytosis Microcytosis Macrocytosis Spherocytes Pappenheimer Bodies Sickle Cells Target Cells Tear Drop Cells Ovalocytes Helmet Cells Gilbert-Amagon Bodies [place] Cells Bite Cells Crenated Cell Elliptocytes Acanthocytes (Spur) Rouleaux Hemoglobin C Crystals Schistocytes Malaria parasites Luis Enrique Bodies Hem Pathologist Commnt PT INR APTT D-Dimer Sodium Potassium Chloride Carbon Dioxide Anion Gap BUN Creatinine Estimated GFR BUN/Creatinine Ratio Glucose Hemoglobin A1c Calcium Magnesium Ferritin Total Bilirubin AST ALT Alkaline Phosphatase Lactate Dehydrogenase Total Creatine Kinase CK-MB (CK-2) CK-MB (CK-2) Rel Index Troponin T C-Reactive Protein Total Protein Albumin Albumin/Globulin Ratio TSH 1.400 Free T4 0.77 Urine Color Urine Turbidity Urine pH Ur Specific [place] Urine Protein Urine Glucose (UA) Urine Ketones Urine Blood Urine Nitrite Urine Bilirubin Urine Urobilinogen Ur Leukocyte Esterase Urine WBC (Auto) Urine RBC (Auto) Urine Mucus Urine Opiates Screen Urine Methadone Screen Ur Barbiturates Screen Ur Phencyclidine Scrn Ur Amphetamines Screen U Benzodiazepines Scrn Urine Cocaine Screen U Marijuana (THC) Screen Drugs of Abuse Note Plasma/Serum Alcohol < 0.01 Blood Type B POSITIVE Antibody Screen Negative 06/29/21 06/29/21 06/29/21 12:03 12:03 23:58 WBC RBC Hgb 9.7 L Hct 29.0 L MCV MCH MCHC RDW Plt Count Lymph % (Auto) [place] % (Auto) Eos % (Auto) Baso % (Auto) Lymph # (Auto) [place] # (Auto) Eos # (Auto) Baso # (Auto) Add Manual Diff Total Counted Seg Neutrophils % Seg Neuts % (Manual) Reactive Lymphs % (Man) Monocytes % (Manual) Basophils % (Manual) Nucleated RBC % Seg Neutrophils # Seg Neutrophils # Man [place] Neutrophils # Lymphocytes # (Manual) Abs React Lymphs (Man) Monocytes # (Manual) Eosinophils # (Manual) Basophils # (Manual) Metamyelocytes # Myelocytes # Promyelocytes # Blast Cells # WBC Morphology Hypersegmented Neuts Hyposegmented Neuts Hypogranular Neuts Smudge Cells Toxic Granulation Toxic Vacuolation Dohle Bodies Pelger-Huet Anomaly Oleg Rods Platelet Estimate Clumped Platelets Plt Clumps, EDTA Large Platelets Giant Platelets Platelet Satelliting Plt Morphology Comment RBC Morphology Dimorphic RBCs Polychromasia Hypochromasia Poikilocytosis Anisocytosis Microcytosis Macrocytosis Spherocytes Pappenheimer Bodies Sickle Cells Target Cells Tear Drop Cells Ovalocytes Helmet Cells Gilbert-Amagon Bodies [place] Cells Bite Cells Crenated Cell Elliptocytes Acanthocytes (Spur) Rouleaux Hemoglobin C Crystals Schistocytes Malaria parasites Luis Enrique Bodies Hem Pathologist Commnt PT INR APTT D-Dimer Sodium Potassium Chloride Carbon Dioxide Anion Gap BUN Creatinine Estimated GFR BUN/Creatinine Ratio Glucose Hemoglobin A1c Calcium Magnesium Ferritin Total Bilirubin AST ALT Alkaline Phosphatase Lactate Dehydrogenase Total Creatine Kinase CK-MB (CK-2) CK-MB (CK-2) Rel Index Troponin T C-Reactive Protein Total Protein Albumin Albumin/Globulin Ratio TSH Free T4 Urine Color Yellow Urine Turbidity Clear Urine pH 5.0 Ur Specific [place] 1.018 Urine Protein <15 mg/dl Urine Glucose (UA) 50 Urine Ketones Neg Urine Blood Neg Urine Nitrite Neg Urine Bilirubin Neg Urine Urobilinogen < 2.0 Ur Leukocyte Esterase Neg Urine WBC (Auto) 1.0 Urine RBC (Auto) < 1.0 Urine Mucus Few Urine Opiates Screen Negative Urine Methadone Screen Negative Ur Barbiturates Screen Negative Ur Phencyclidine Scrn Negative Ur Amphetamines Screen Negative U Benzodiazepines Scrn Negative Urine Cocaine Screen Negative U Marijuana (THC) Screen Negative Drugs of Abuse Note Disclamer Plasma/Serum Alcohol Blood Type Antibody Screen 06/29/21 06/29/21 06/29/21 23:58 23:58 23:58 WBC RBC Hgb Hct MCV MCH MCHC RDW Plt Count Lymph % (Auto) [place] % (Auto) Eos % (Auto) Baso % (Auto) Lymph # (Auto) [place] # (Auto) Eos # (Auto) Baso # (Auto) Add Manual Diff Total Counted Seg Neutrophils % Seg Neuts % (Manual) Reactive Lymphs % (Man) Monocytes % (Manual) Basophils % (Manual) Nucleated RBC % Seg Neutrophils # Seg Neutrophils # [place] Neutrophils # Lymphocytes # (Manual) Abs React Lymphs (Man) Monocytes # (Manual) Eosinophils # (Manual) Basophils # (Manual) Metamyelocytes # Myelocytes # Promyelocytes # Blast Cells # WBC Morphology Hypersegmented Neuts Hyposegmented Neuts Hypogranular Neuts Smudge Cells Toxic Granulation Toxic Vacuolation Dohle Bodies Pelger-Huet Anomaly Oleg Rods Platelet Estimate Clumped Platelets Plt Clumps, EDTA Large Platelets Giant Platelets Platelet Satelliting Plt Morphology Comment RBC Morphology Dimorphic RBCs Polychromasia Hypochromasia Poikilocytosis Anisocytosis Microcytosis Macrocytosis Spherocytes Pappenheimer Bodies Sickle Cells Target Cells Tear Drop Cells Ovalocytes Helmet Cells Gilbert-Amagon Bodies [place] Cells Bite Cells Crenated Cell Elliptocytes Acanthocytes (Spur) Rouleaux Hemoglobin C Crystals Schistocytes Malaria parasites Luis Enrique Bodies Hem Pathologist Commnt PT INR APTT D-Dimer 795.77 H Sodium Potassium Chloride Carbon Dioxide Anion Gap BUN Creatinine Estimated GFR BUN/Creatinine Ratio Glucose 112 H Hemoglobin A1c Calcium Magnesium Ferritin 105.1 Total Bilirubin AST ALT Alkaline Phosphatase Lactate Dehydrogenase 129 Total Creatine Kinase CK-MB (CK-2) CK-MB (CK-2) Rel Index Troponin T C-Reactive Protein 0.50 Total Protein Albumin Albumin/Globulin Ratio TSH Free T4 Urine Color Urine Turbidity Urine pH Ur Specific [place] Urine Protein Urine Glucose (UA) Urine Ketones Urine Blood Urine Nitrite Urine Bilirubin Urine Urobilinogen Ur Leukocyte Esterase Urine WBC (Auto) Urine RBC (Auto) Urine Mucus Urine Opiates Screen Urine Methadone Screen Ur Barbiturates Screen Ur Phencyclidine Scrn Ur Amphetamines Screen U Benzodiazepines Scrn Urine Cocaine Screen U Marijuana (THC) Screen Drugs of Abuse Note Plasma/Serum Alcohol Blood Type Antibody Screen 06/30/21 06/30/21 06/30/21 05:28 05:28 05:28 WBC 9.8 RBC 3.55 L Hgb 10.6 L Hct 31.0 L MCV 87 MCH 30 MCHC 34 RDW 13.1 L Plt Count 151 Lymph % (Auto) [place] % (Auto) Eos % (Auto) Baso % (Auto) Lymph # (Auto) [place] # (Auto) Eos # (Auto) Baso # (Auto) Add Manual Diff Complete Total Counted 100 Seg Neutrophils % [employer] Worker Seg Neuts % (Manual) 94.0 H Reactive Lymphs % (Man) 1.0 Monocytes % (Manual) 4.0 Basophils % (Manual) 1.0 Nucleated RBC % Not Reportable Seg Neutrophils # Seg Neutrophils # Man 9.2 H Band Neutrophils # 0.0 Lymphocytes # (Manual) 0.0 L Abs React Lymphs (Man) 0.1 Monocytes # (Manual) 0.4 Eosinophils # (Manual) 0.0 Basophils # (Manual) 0.1 Metamyelocytes # 0.0 Myelocytes # 0.0 Promyelocytes # 0.0 Blast Cells # 0.0 WBC Morphology Not Reportable Hypersegmented Neuts Not Reportable Hyposegmented Neuts Not Reportable Hypogranular Neuts Not Reportable Smudge Cells Not Reportable Toxic Granulation Not Reportable Toxic Vacuolation Not Reportable Dohle Bodies Not Reportable Pelger-Huet Anomaly Not Reportable Oleg Rods Not Reportable Platelet Estimate Consistent w auto Clumped Platelets Not Reportable Plt Clumps, EDTA Not Reportable Large Platelets Not Reportable Giant Platelets Not Reportable Platelet Satelliting Not Reportable Plt Morphology Comment Not Reportable RBC Morphology Normal Dimorphic RBCs Not Reportable Polychromasia Not Reportable Hypochromasia Not Reportable Poikilocytosis Not Reportable Anisocytosis Not Reportable Microcytosis Not Reportable Macrocytosis Not Reportable Spherocytes Not Reportable Pappenheimer Bodies Not Reportable Sickle Cells Not Reportable Target Cells Not Reportable Tear Drop Cells Not Reportable Ovalocytes Not Reportable Helmet Cells Not Reportable Gilbert-Amagon Bodies Not Reportable [place] Rings Not Reportable [place] Cells Not Reportable Bite Cells Not Reportable Crenated Cell Not Reportable Elliptocytes Not Reportable Acanthocytes (Spur) Not Reportable Rouleaux Not Reportable Hemoglobin C Crystals Not Reportable Schistocytes Not Reportable Malaria parasites Not Reportable Luis Enrique Bodies Not Reportable Hem Pathologist Commnt No PT INR APTT D-Dimer Sodium 140 Potassium 4.4 Chloride 107.1 H Carbon Dioxide 24 Anion Gap 13 BUN 19 Creatinine 0.7 L Estimated GFR > 60 BUN/Creatinine Ratio 27 Glucose 141 H Hemoglobin A1c 5.8 Calcium 9.2 Magnesium Ferritin Total Bilirubin 0.60 AST 15 ALT 12 Alkaline Phosphatase 72 Lactate Dehydrogenase Total Creatine Kinase CK-MB (CK-2) CK-MB (CK-2) Rel Index Troponin T C-Reactive Protein Total Protein 6.2 L Albumin 3.7 L Albumin/Globulin Ratio 1.5 TSH Free T4 Urine Color Urine Turbidity Urine pH Ur Specific [place] Urine Protein Urine Glucose (UA) Urine Ketones Urine Blood Urine Nitrite Urine Bilirubin Urine Urobilinogen Ur Leukocyte Esterase Urine WBC (Auto) Urine RBC (Auto) Urine Mucus Urine Opiates Screen Urine Methadone Screen Ur Barbiturates Screen Ur Phencyclidine Scrn Ur Amphetamines Screen U Benzodiazepines Scrn Urine Cocaine Screen U Marijuana (THC) Screen Drugs of Abuse Note Plasma/Serum Alcohol Blood Type Antibody Screen Assessment and Plan Hemoglobin essentially stable No overt bleeding and no bowel movements since patient came into the hospital yesterday No significant GI symptoms and patient currently feels better Therefore, from GI standpoint patient can be evaluated and managed as an outpatient and can be discharged. I will have my staff reach out to him to schedule outpatient visit in the near future and he can undergo EGD colonoscopy as the differential diagnosis for his symptoms are broad and include peptic ulcer disease H. pylori gastritis colon polyp malignancy etc. I will also have my staff set him up with the forms for our patient assistance program to provide discounted care for patients who lack health insurance - Patient Problems (1) Occult blood positive stool Current Visit: Yes Status: Acute (2) Melena Current Visit: Yes Status: Acute (3) GI bleed Current Visit: Yes Status: Acute
--- NOTE | 2021-06-30 10:47 | Progress Note ---
Assessment and Plan Assessment and plan: (1) Right lower lobe pneumonia Current Visit: Yes Status: Acute Plan to address problem: Treat as community-acquired pneumonia Coronavirus PCR to be ruled out CT chest shows groundglass opacities Possible Covid (2) GI bleed Current Visit: Yes Status: Acute Plan to address problem: Patient complains of dark stools Occult blood positive Hemoglobin dropped from 11.5 to 9.7 g and hematocrit dropped from 34.5-29 Patient is kept n.p.o. GI consult IV Protonix drip (3) Person under investigation for COVID-19 Current Visit: Yes Status: Acute (4) Syncope Current Visit: Yes Status: Acute Plan to address problem: Syncope secondary to volume loss in the form of GI bleed Monitor hemoglobin and hematocrit Carotid duplex scan Echocardiogram for ejection fraction (5) Malnutrition Current Visit: Yes Status: Chronic Qualifiers: Protein-calorie malnutrition severity: mild Plan to address problem: Albumin of 3.4 Dietary supplements once patient is eating (6) Hypocalcemia Current Visit: Yes Status: Chronic Plan to address problem: Calcium supplements when stable (7) DVT prophylaxis Current Visit: Yes Status: Acute Plan to address problem: No heparin On Protonix IV drip 06/30/21 Patient presented with episode of passing out. Also had dark stools. He was evaluated by GI. His H/H stable For syncope, will get Echo, consult Cardiology. Pneumoonia right middle and lower lobe seen on CT Chest. Cont Rocephin, Zithromax Covid-19 test ordered History Interval history: Patient passed out Dark stools Hospitalist Physical - Physical exam Narrative exam: Gen: Not in acute distress, lying in bed HEENT: Normocephalic, atraumatic Neck : supple, no JVD Heart:S1 and S2 reg, no murmurs, rubs or gallop Lungs: Rales right lung field, no wheeze Abd: Soft , non tender, non distended, normal bowel sounds Ext: No edema, no clubbing, no cyanosis Neuro: Awake, alert, oriented, moves all ext - Constitutional Vitals: Temp Pulse Resp BP Pulse Ox 97.4 F L 64 11 L 101/71 99 06/29/21 10:43 06/30/21 08:16 06/30/21 08:16 06/30/21 08:16 06/30/21 08:24 General appearance: Present: no acute distress HEART Score - HEART Score EKG: Normal Age: 45-65 Risk factors: No known risk factors Troponin: Troponin T < 0.010 ng/mL (0.00-0.029) 06/29/21 11:53 Troponin: < normal limit - Critical Actions Critical Actions: 0-3 pts:0.9-1.7%risk of adverse cardiac event.Candidate for discharge Results - Labs CBC & Chem 7: 06/30/21 05:28 06/30/21 05:28 Labs: Laboratory Last Values WBC 9.8 K/mm3 (4.5-11.0) 06/30/21 05:28 RBC 3.55 M/mm3 (3.65-5.03) L 06/30/21 05:28 Hgb 10.6 gm/dl (11.8-15.2) L 06/30/21 05:28 Hct 31.0 % (35.5-45.6) L 06/30/21 05:28 MCV 87 fl (84-94) 06/30/21 05:28 MCH 30 pg (28-32) 06/30/21 05:28 MCHC 34 % (32-34) 06/30/21 05:28 RDW 13.1 % (13.2-15.2) L 06/30/21 05:28 Plt Count 151 K/mm3 (140-440) 06/30/21 05:28 Lymph % (Auto) 8.7 % (13.4-35.0) L 06/29/21 11:53 [place] % (Auto) 5.1 % (0.0-7.3) 06/29/21 11:53 Eos % (Auto) 0.8 % (0.0-4.3) 06/29/21 11:53 Baso % (Auto) 0.3 % (0.0-1.8) 06/29/21 11:53 Lymph # (Auto) 0.9 K/mm3 (1.2-5.4) L 06/29/21 11:53 [place] # (Auto) 0.5 K/mm3 (0.0-0.8) 06/29/21 11:53 Eos # (Auto) 0.1 K/mm3 (0.0-0.4) 06/29/21 11:53 Baso # (Auto) 0.0 K/mm3 (0.0-0.1) 06/29/21 11:53 Add Manual Diff Complete 06/30/21 05:28 Total Counted 100 06/30/21 05:28 Seg Neutrophils % [facility] 06/30/21 05:28 Seg Neuts % (Manual) 94.0 % (40.0-70.0) H 06/30/21 05:28 Reactive Lymphs % (Man) 1.0 % 06/30/21 05:28 Monocytes % (Manual) 4.0 % (0.0-7.3) 06/30/21 05:28 Basophils % (Manual) 1.0 % (0.0-1.8) 06/30/21 05:28 Nucleated RBC % Not Reportable 06/30/21 05:28 Seg Neutrophils # 9.0 K/mm3 (1.8-7.7) H 06/29/21 11:53 Seg Neutrophils # Man 9.2 K/mm3 (1.8-7.7) H 06/30/21 05:28 Band Neutrophils # 0.0 K/mm3 06/30/21 05:28 Lymphocytes # (Manual) 0.0 K/mm3 (1.2-5.4) L 06/30/21 05:28 Abs React Lymphs (Man) 0.1 K/mm3 06/30/21 05:28 Monocytes # (Manual) 0.4 K/mm3 (0.0-0.8) 06/30/21 05:28 Eosinophils # (Manual) 0.0 K/mm3 (0.0-0.4) 06/30/21 05:28 Basophils # (Manual) 0.1 K/mm3 (0.0-0.1) 06/30/21 05:28 Metamyelocytes # 0.0 K/mm3 06/30/21 05:28 Myelocytes # 0.0 K/mm3 06/30/21 05:28 Promyelocytes # 0.0 K/mm3 06/30/21 05:28 Blast Cells # 0.0 K/mm3 06/30/21 05:28 WBC Morphology Not Reportable 06/30/21 05:28 Hypersegmented Neuts Not Reportable 06/30/21 05:28 Hyposegmented Neuts Not Reportable 06/30/21 05:28 Hypogranular Neuts Not Reportable 06/30/21 05:28 Smudge Cells Not Reportable 06/30/21 05:28 Toxic Granulation Not Reportable 06/30/21 05:28 Toxic Vacuolation Not Reportable 06/30/21 05:28 Dohle Bodies Not Reportable 06/30/21 05:28 Pelger-Huet Anomaly Not Reportable 06/30/21 05:28 Oleg Rods Not Reportable 06/30/21 05:28 Platelet Estimate Consistent w auto 06/30/21 05:28 Clumped Platelets Not Reportable 06/30/21 05:28 Plt Clumps, EDTA Not Reportable 06/30/21 05:28 Large Platelets Not Reportable 06/30/21 05:28 Giant Platelets Not Reportable 06/30/21 05:28 Platelet Satelliting Not Reportable 06/30/21 05:28 Plt Morphology Comment Not Reportable 06/30/21 05:28 RBC Morphology Normal 06/30/21 05:28 Dimorphic RBCs Not Reportable 06/30/21 05:28 Polychromasia Not Reportable 06/30/21 05:28 Hypochromasia Not Reportable 06/30/21 05:28 Poikilocytosis Not Reportable 06/30/21 05:28 Anisocytosis Not Reportable 06/30/21 05:28 Microcytosis Not Reportable 06/30/21 05:28 Macrocytosis Not Reportable 06/30/21 05:28 Spherocytes Not Reportable 06/30/21 05:28 Pappenheimer Bodies Not Reportable 06/30/21 05:28 Sickle Cells Not Reportable 06/30/21 05:28 Target Cells Not Reportable 06/30/21 05:28 Tear Drop Cells Not Reportable 06/30/21 05:28 Ovalocytes Not Reportable 06/30/21 05:28 Helmet Cells Not Reportable 06/30/21 05:28 [place] Bodies Not Reportable 06/30/21 05:28 [place] Rings Not Reportable 06/30/21 05:28 [place] Cells Not Reportable 06/30/21 05:28 Bite Cells Not Reportable 06/30/21 05:28 Crenated Cell Not Reportable 06/30/21 05:28 Elliptocytes Not Reportable 06/30/21 05:28 Acanthocytes (Spur) Not Reportable 06/30/21 05:28 Rouleaux Not Reportable 06/30/21 05:28 Hemoglobin C Crystals Not Reportable 06/30/21 05:28 Schistocytes Not Reportable 06/30/21 05:28 Malaria parasites Not Reportable 06/30/21 05:28 Luis Enrique Bodies Not Reportable 06/30/21 05:28 Hem Pathologist Commnt No 06/30/21 05:28 PT 16.1 Sec. (12.2-14.9) H 06/29/21 11:53 INR 1.24 (0.87-1.13) H 06/29/21 11:53 APTT 23.8 Sec. (24.2-36.6) L 06/29/21 11:53 D-Dimer 795.77 ng/mlDDU (0-234) H 06/29/21 23:58 Sodium 140 mmol/L (137-145) 06/30/21 05:28 Potassium 4.4 mmol/L (3.6-5.0) 06/30/21 05:28 Chloride 107.1 mmol/L (98-107) H 06/30/21 05:28 Carbon Dioxide 24 mmol/L (22-30) 06/30/21 05:28 Anion Gap 13 mmol/L 06/30/21 05:28 BUN 19 mg/dL (9-20) 06/30/21 05:28 Creatinine 0.7 mg/dL (0.8-1.3) L 06/30/21 05:28 Estimated GFR > 60 ml/min 06/30/21 05:28 BUN/Creatinine Ratio 27 % 06/30/21 05:28 Glucose 141 mg/dL (75-100) H 06/30/21 05:28 Hemoglobin A1c 5.8 % (4-6) 06/30/21 05:28 Calcium 9.2 mg/dL (8.4-10.2) 06/30/21 05:28 Magnesium 1.90 mg/dL (1.7-2.3) 06/29/21 11:53 Ferritin 105.1 ng/mL (30.0-300.0) 06/29/21 23:58 Total Bilirubin 0.60 mg/dL (0.1-1.2) 06/30/21 05:28 AST 15 units/L (5-40) 06/30/21 05:28 ALT 12 units/L (7-56) 06/30/21 05:28 Alkaline Phosphatase 72 units/L (35-129) 06/30/21 05:28 Lactate Dehydrogenase 129 units/L (91-180) 06/29/21 23:58 Total Creatine Kinase 176 units/L (55-170) H 06/29/21 11:53 CK-MB (CK-2) 5.0 ng/mL (0.0-4.0) H 06/29/21 11:53 CK-MB (CK-2) Rel Index 2.8 (0-4) 06/29/21 11:53 Troponin T < 0.010 ng/mL (0.00-0.029) 06/29/21 11:53 C-Reactive Protein 0.50 mg/dL (0.00-1.30) 06/29/21 23:58 Total Protein 6.2 g/dL (6.3-8.2) L 06/30/21 05:28 Albumin 3.7 g/dL (3.9-5) L 06/30/21 05:28 Albumin/Globulin Ratio 1.5 % 06/30/21 05:28 TSH 1.400 mlU/mL (0.270-4.200) 06/29/21 11:53 Free T4 0.77 ng/dL (0.76-1.46) 06/29/21 11:53 Urine Color Yellow (Yellow) 06/29/21 12:03 Urine Turbidity Clear (Clear) 06/29/21 12:03 Urine pH 5.0 (5.0-7.0) 06/29/21 12:03 Ur Specific [place] 1.018 (1.003-1.030) 06/29/21 12:03 Urine Protein <15 mg/dl mg/dL (Negative) 06/29/21 12:03 Urine Glucose (UA) 50 mg/dL (Negative) 06/29/21 12:03 Urine Ketones Neg mg/dL (Negative) 06/29/21 12:03 Urine Blood Neg (Negative) 06/29/21 12:03 Urine Nitrite Neg (Negative) 06/29/21 12:03 Urine Bilirubin Neg (Negative) 06/29/21 12:03 Urine Urobilinogen < 2.0 mg/dL (<2.0) 06/29/21 12:03 Ur Leukocyte Esterase Neg (Negative) 06/29/21 12:03 Urine WBC (Auto) 1.0 /HPF (0.0-6.0) 06/29/21 12:03 Urine RBC (Auto) < 1.0 /HPF (0.0-6.0) 06/29/21 12:03 Urine Mucus Few /HPF 06/29/21 12:03 Urine Opiates Screen Negative 06/29/21 12:03 Urine Methadone Screen Negative 06/29/21 12:03 Ur Barbiturates Screen Negative 06/29/21 12:03 Ur Phencyclidine Scrn Negative 06/29/21 12:03 Ur Amphetamines Screen Negative 06/29/21 12:03 U Benzodiazepines Scrn Negative 06/29/21 12:03 Urine Cocaine Screen Negative 06/29/21 12:03 U Marijuana (THC) Screen Negative 06/29/21 12:03 Drugs of Abuse Note Disclamer 06/29/21 12:03 Plasma/Serum Alcohol < 0.01 % (0-0.07) 06/29/21 11:53 Blood Type B POSITIVE 06/29/21 11:53 Antibody Screen Negative 06/29/21 11:53 Microbiology: Microbiology 06/29/21 15:24 Peripheral/Venous Blood Culture - Preliminary Culture in Progress 06/29/21 15:24 Peripheral/Venous Blood Culture - Preliminary Culture in Progress 06/29/21 11:48 Stool Stool Occult Blood (KIRSTIN) - Final Active Medications - Current Medications Current Medications: Generic Name Dose Route Start Last Admin Trade Name Freq PRN Reason Stop Dose Admin Acetaminophen 650 mg 06/29/21 22:37 Acetaminophen 325 Mg Tab PO Q4H PRN Pain MILD(1-3)/Fever >100.5/COSBY Dexamethasone 8 mg 06/29/21 23:00 06/29/21 23:10 Dexamethasone 4 Mg/Ml Vial IV 8 mg Q24H JUSTYN Administration Hydromorphone HCl 0.5 mg 06/29/21 22:37 Hydromorphone 1 Mg/1 Ml Inj IV Q3H PRN Pain , Severe (7-10) Dextrose/Sodium Chloride 1,000 mls @ 75 mls/hr 06/29/21 23:00 06/29/21 23:44 D5ns IV 75 mls/hr DIRECT JUSTYN Administration Pantoprazole Sodium 80 mg/ 100 mls @ 10 mls/hr 06/29/21 23:00 06/29/21 23:43 Sodium Chloride IV 8 mg/hr DIRECT JUSTYN 10 mls/hr Administration 8 MG/HR Azithromycin 500 mg in 250 mls @ 250 mls/hr 06/30/21 10:00 Zithromax/Ns IV Q24H [facility] Ceftriaxone Sodium 2 gm in 100 mls @ 200 mls/hr 06/30/21 10:00 Rocephin/Ns 2 Gm/100 Ml IV Q24HR [facility] Protocol Morphine Sulfate 2 mg 06/29/21 22:37 Morphine 2 Mg/1 Ml Inj IV Q4H PRN Pain, Moderate (4-6) Ondansetron HCl 4 mg 06/29/21 22:37 Ondansetron 4 Mg/2 Ml Inj IV Q8H PRN Nausea And Vomiting Sodium Chloride 10 ml 06/30/21 10:00 Sodium Chloride 0.9% 10 Ml Flush Syringe IV BID [facility] Sodium Chloride 10 ml 06/29/21 22:37 Sodium Chloride 0.9% 10 Ml Flush Syringe IV PRN PRN LINE FLUSH
[2021-06-30 17:34] LABS: Hemoglobin 10.2 gm/dl (11.8-15.2)
[2021-06-30 18:29] VITALS: BP 127/108
--- NOTE | 2021-06-30 22:16 | Consultation ---
History of Present Illness Consult date: 06/30/21 Requesting physician: DEO RIZVI Consult reason: syncope History of present illness: The patient is a 55-year-old male presents with chief complaint of syncope. The patient states he awakened this morning feeling great except for a mild headache at the calvarium. Patient states he stopped at a store to buy some Advil and abdelrahman nirmal. Patient states he then drove to work and after parking his car and walking towards his job he says he began to sweat and feel short of breath before losing consciousness. Patient states his next memory is awakening on the ground with his coworker over him. Patient denied ever having chest pain or palpitations. Patient denies history of cough. Patient denies any previous episodes of the same. Patient states he has not received a Covid vaccination. When asked how he is feeling currently the patient replies he feels good. CTA chest: negative for PE/ground glass opacities RUL/RLL Past History Past Medical History: No medical history Past Surgical History: No surgical history Social history: no significant social history Family history: no significant family history Medications and Allergies Allergies Allergy/AdvReac Type Severity Reaction Status Date / Time No Known Allergies Allergy Unverified 06/29/21 11:06 Active Meds: Active Medications Acetaminophen (Acetaminophen 325 Mg Tab) 650 mg PO Q4H PRN PRN Reason: Pain MILD(1-3)/Fever >100.5/COSBY Dexamethasone (Dexamethasone 4 Mg/Ml Vial) 8 mg IV Q24H JUSTYN Last Admin: 06/29/21 23:10 Dose: 8 mg Documented by: Hydromorphone HCl (Hydromorphone 1 Mg/1 Ml Inj) 0.5 mg IV Q3H PRN PRN Reason: Pain , Severe (7-10) Dextrose/Sodium Chloride (D5ns) 1,000 mls @ 75 mls/hr IV DIRECT JUSTYN Last Infusion: 06/30/21 11:00 Dose: Infused Documented by: Pantoprazole Sodium 80 mg/ (Sodium Chloride) 100 mls @ 10 mls/hr IV DIRECT JUSTYN Last Infusion: 06/30/21 11:32 Dose: Infused Documented by: Azithromycin (Zithromax/Ns) 500 mg in 250 mls @ 250 mls/hr IV Q24H JUSTYN Last Infusion: 06/30/21 18:22 Dose: Infused Documented by: Ceftriaxone Sodium (Rocephin/Ns 2 Gm/100 Ml) 2 gm in 100 mls @ 200 mls/hr IV Q24HR [facility]; Protocol Last Infusion: 06/30/21 12:07 Dose: Infused Documented by: Morphine Sulfate (Morphine 2 Mg/1 Ml Inj) 2 mg IV Q4H PRN PRN Reason: Pain, Moderate (4-6) Ondansetron HCl (Ondansetron 4 Mg/2 Ml Inj) 4 mg IV Q8H PRN PRN Reason: Nausea And Vomiting Sodium Chloride (Sodium Chloride 0.9% 10 Ml Flush Syringe) 10 ml IV BID [facility] Last Admin: 06/30/21 11:15 Dose: 10 ml Documented by: Sodium Chloride (Sodium Chloride 0.9% 10 Ml Flush Syringe) 10 ml IV PRN PRN PRN Reason: LINE FLUSH Review of Systems Constitutional: no weight loss, no weight gain Ears, nose, mouth and throat: deferred Cardiovascular: syncope, no chest pain, no orthopnea, no palpitations Respiratory: no excessive sputum, no hemoptysis Gastrointestinal: no nausea, no vomiting, no diarrhea Genitourinary Male: no dysuria, no hematuria, no flank pain Musculoskeletal: no neck pain, no shooting arm pain Integumentary: no rash, no pruritis Neurological: syncope Physical Examination Vital Signs Pulse Ox 98 06/29/21 10:24 General appearance: no acute distress HEENT: Positive: PERRL Neck: Positive: neck supple Cardiac: Positive: Reg Rate and Rhythm Lungs: Positive: Normal Exam, clear to auscultation Abdomen: Positive: Unremarkable, Soft, Active Bowel Sounds Male genitourinary: Positive: deferred Skin: Negative: Rash Extremities: Present: warm. Absent: edema Results 06/30/21 16:57 06/30/21 05:28 Cardiac Enzymes 06/29/21 06/30/21 Range/Units 23:58 05:28 AST 15 (5-40) units/L Lactate Dehydrogenase 129 (91-180) units/L CBC 06/29/21 06/30/21 06/30/21 Range/Units 23:58 05:28 16:57 WBC 9.8 (4.5-11.0) K/mm3 RBC 3.55 L (3.65-5.03) M/mm3 Hgb 9.7 L 10.6 L 10.2 L (11.8-15.2) gm/dl Hct 29.0 L 31.0 L 30.0 L (35.5-45.6) % Plt Count 151 (140-440) K/mm3 Comprehensive Metabolic Panel 06/29/21 06/30/21 Range/Units 23:58 05:28 Sodium 140 (137-145) mmol/L Potassium 4.4 (3.6-5.0) mmol/L Chloride 107.1 H (98-107) mmol/L Carbon Dioxide 24 (22-30) mmol/L BUN 19 (9-20) mg/dL Creatinine 0.7 L (0.8-1.3) mg/dL Glucose 112 H 141 H (75-100) mg/dL Calcium 9.2 (8.4-10.2) mg/dL AST 15 (5-40) units/L ALT 12 (7-56) units/L Alkaline Phosphatase 72 (35-129) units/L Total Protein 6.2 L (6.3-8.2) g/dL Albumin 3.7 L (3.9-5) g/dL - Imaging and Cardiology Echo: pending Assessment and Plan 55 Male Syncope CTA: negative for PE, RUL and RLL opacities c/w pneumonia Head CT: microvascular changes/intracranial atherosclerosis, no acute abnormality Blood CX: pending ECHO/Carotid pending Continue to monitor on tele
--- NOTE | 2021-07-01 08:40 | Event Note ---
Date: 07/01/21 I tried to find the patient for follow-up visit today. After contacting bedboard I was informed that patient had left AMA
--- NOTE | 2021-07-01 08:45 | Discharge Summary ---
Providers - Providers Date of Admission: 06/29/21 21:33 Date of discharge: 06/30/21 Attending physician: DEO RIZVI 06/29/21 22:37 Consult to Physician [CONS] Routine Comment: Consulting Provider: KATIE SOTO Physician Instructions: Reason For Exam: GI Bleed 06/30/21 10:45 Consult to Physician [CONS] Routine Comment: Consulting Provider: SHIRLEY PARKER Physician Instructions: Reason For Exam: syncope Primary care physician: ROMAN CUI MD Hospitalization Condition: Fair Hospital course: Patient is 55-year-old male with no significant past medical history apparently began with sweat and felt short of breath and passed out. Patient states that he was on the ground and his coworker woke him up. Patient was exposed to some heat. He was evaluated in [facility]. Patient is not vaccinated against Covid. No fever or chills. First episode of passing out while going to work. No chest pain or shortness of breath or altered sensorium. Patient also complained of dark stools for last 24 hours. Hgb was 12.5. Orders were put in for admission and GI and cardiology consulted. He had a Negative Covid-19 test done in ED. Cardiology ordered stress test. However he left against medical advice while waiting in ED for bed. Disposition: [id number] LEFT AGAINST MED ADVICE Final Discharge Diagnosis (Prints w/discharge instructions): 1.Syncope due to GI bleed. 2.GI bleed - Discharge Diagnoses (1) GI bleed Status: Acute (2) Melena Status: Acute (3) Syncope Status: Acute (4) GI bleed Status: Acute Core Measure Documentation - Palliative Care Palliative Care/ Comfort Measures: Not Applicable - Core Measures Any of the following diagnoses?: none Exam - Constitutional Vitals: Temp Pulse Resp BP Pulse Ox 97.4 F L 71 14 127/108 86 06/29/21 10:43 06/30/21 18:00 06/30/21 18:00 06/30/21 18:00 06/30/21 18:00 Plan Follow up with: ROMAN CUI MD [Primary Care Provider] - 3-5 Days Forms: AMA Form
[2021-07-01] MEDS ORDERED: dexAMETHasone 4 MG/ML VIAL IV SCH (10:00)
--- NOTE | 2021-07-01 21:02 | Electrocardiograph Report ---
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
== END 2021-06-30 18:20 | disposition left against medical advice (07) | DRG 377 ==
LOC: ED 09:46 → 2B-ACE 21:33 → 3A 22:53
PROVIDERS: ADMIT Internal Medicine; ATTEND Internal Medicine
DX: K92.2 Gastrointestinal hemorrhage, unspecified (principal); J18.1 Lobar pneumonia, unspecified organism; Z20.822 Contact with and (suspected) exposure to COVID-19; E44.1 Mild protein-calorie malnutrition; Z68.22 Body mass index [BMI] 22.0-22.9, adult; E83.51 Hypocalcemia
CPT/HCPCS: 36415; 70450; 71045; 71275; 74174; 80053; 80307; 80320; 81001; 82271; 82550; 82553; 82728; 82947; 83036; 83615; 83735; 84145; 84439; 84443; 84484; 85007; 85014; 85018; 85025; 85379; 85610; 85730; 86140; 86850; 86900; 86901; 87040; 93005; G0378; C9113; G0480; J0456; J0696; J1100; J7030; J7042; Q9967; U0003